=== PATIENT | male | born 1950 | race Caucasian/White ===

== ENCOUNTER 2017-02-17 12:29 | Emergency (ER) | payer BC, MEDICARE, OTHER ==
[2017-02-17 12:29] VITALS: BMI 21.5
--- NOTE | 2017-02-17 12:44 | C.PDOC ---
History Of Present Illness 66M c/o non-exertional midsternal chest pain since around 10 or 11am this morning. no exac or reliev fx. he also has pain in his right arm but he says he did a lot ot yardwork and heavy lifting yesterday and his arm pain is worse with movement of the arm. 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 Time Seen by Provider: 02/17/17 12:43 Chief Complaint (Nursing): Chest Pain Past Medical History Vital Signs: Last Vital Signs Temp 97.7 F 02/17/17 12:41 Pulse 79 02/17/17 12:41 Resp 20 02/17/17 12:41 BP 132/90 02/17/17 12:41 Pulse Ox 97 02/17/17 12:41 - Medical History PMH: Anemia, Gall Bladder Disease (cholecystectomy 1988), HTN, Hypercholesterolemia (Not taking meds anymore), Kidney Stones (passed without intervention), Malignancy (ESOPHAGUS) Surgical History: Appendectomy (childhood), Cholecystectomy (1988), Endoscopy - [facility] Procedures ESOPHAGOGASTRODUODENOSCOPY [EGD] W/CLOSED BIOPSY (02/07/13) OTH & OPEN REPAIR DIRECT INGUINAL HERNIA W GRAFT OR PROSTH (01/04/14) PACKED CELL TRANSFUSION (08/04/13) Family History: States: Other Other Family History: nc - Social History Hx Tobacco Use: No Hx Alcohol Use: No Hx Substance Use: No - Immunization History Hx Tetanus Toxoid Vaccination: No Hx Influenza Vaccination: Yes Hx Pneumococcal Vaccination: Yes Review Of Systems Except As Marked, All Systems Reviewed And Found Negative. Constitutional: Negative for: Fever, Chills Cardiovascular: Positive for: Chest Pain. Negative for: Palpitations, Edema, Light Headedness Respiratory: Negative for: Cough, Shortness of Breath, Hemoptysis Gastrointestinal: Negative for: Nausea, Vomiting, Abdominal Pain Musculoskeletal: Positive for: Arm Pain Neurological: Negative for: Weakness, Numbness Physical Exam - Physical Exam Appears: Well, Non-toxic, No Acute Distress Skin: Warm, Dry Head: Atraumatic, Normacephalic Eye(s): bilateral: PERRL Nose: No Epistaxis Oral Mucosa: Moist Neck: Normal ROM Chest: No Tenderness Cardiovascular: Rhythm Regular Respiratory: No Decreased Breath Sounds, No Accessory Muscle Use, No Rales, No Rhonchi, No Wheezing Gastrointestinal/Abdominal: Soft, No Tenderness Extremity: No Swelling Pulses: Left Radial: Normal, Right Radial: Normal Neurological/Psych: Oriented x3, Normal Motor, Normal Sensation, Other (no focal deficits) ED Course And Treatment - Laboratory Results Result Diagrams: 02/17/17 13:02 02/17/17 13:02 Medical Decision Making Medical Decision Making: ecg- nsr 93, nl axis, nl int, no acute ischemia cxr- nad disc results and overall risk level pt does not wish to be admitted but agrees to repeat trop 3 hours disc w Shandra- agree w plan for 3 hour trop and follow up tomorrow if neg Disposition - Disposition Referrals: Roseanne Devi MD [Staff Provider] - Disposition: HOME/ ROUTINE Disposition Time: 16:45 Condition: STABLE Additional Instructions: Please follow up with your doctor tomorrow. Return to the ER for any worsening symptoms or for any other concerns. Instructions: Chest Pain (ED) Forms: General Discharge Instructions - Clinical Impression Clinical Impression: Chest pain
[2017-02-17 12:45] VITALS: RESP 20; TEMP 97.7
[2017-02-17 13:08] LABS: BASO % 0.7 % (0.0-2.0); EOS # 0.2 K/uL (0.0-0.7); EOS % 2.3 % (0.0-4.0); HEMOGLOBIN 14.6 g/dL (12.0-18.0); LYMPH # 1.2 K/uL (1.0-4.3); LYMPH % 17.9 % (20.0-40.0); MEAN CELL VOLUME 88.8 fL (80.0-94.0); MEAN CORPUSCULAR HEMOGLOBIN 28.9 pg (27.0-31.0); MEAN CORPUSCULAR HGB CONC 32.6 g/dL (33.0-37.0); MEAN PLATELET VOLUME 7.5 fL (7.2-11.7); MONO # 0.7 K/uL (0.0-0.8); NEUT # 4.4 K/uL (1.8-7.0); NEUT % 68.1 % (50.0-75.0); NRBC % 0.1 % (0.0-2.0); RBC 5.03 Mil/uL (4.40-5.90); RED CELL DISTRIBUTION WIDTH 14.2 % (11.5-14.5); WHITE BLOOD COUNT 6.5 K/uL (4.8-10.8)
[2017-02-17 13:16] LABS: ALBUMIN 4.1 g/dL (3.5-5.0)
[2017-02-17 13:18] LABS: GFR AFRICAN-AMERICAN > 60; GFR NON-AFRICAN AMERICAN 55
[2017-02-17 13:19] LABS: ALB/GLOB RATIO 1.2 (1.0-2.1); ALT/SGPT 30 U/L (21-72); AST/SGOT 29 U/L (17-59); BLOOD UREA NITROGEN 21 mg/dL (9-20)
[2017-02-17 13:20] LABS: CALCIUM 9.2 mg/dl (8.6-10.4)
--- NOTE | 2017-02-17 13:36 | RAD ---
HISTORY: cp COMPARISON: Comparison chest 01/02/2014 comparison also made with CT scan chest abdomen pelvis dated 08/04/2013. FINDINGS: LUNGS: Previously noted mild bibasilar infiltrates/atelectasis and bilateral effusions resolved. The Residual bibasilar atelectasis/ scarring right greater than left. Persistent elevation right hemidiaphragm particularly along the lateral aspect of the hemidiaphragm. Additionally, there appears to be some minor linear scarring/fibrotic changes in the upper lobes as well. PLEURA: No significant pleural effusion identified, no pneumothorax apparent. CARDIOVASCULAR: Normal. . OSSEOUS STRUCTURES: No significant abnormalities. VISUALIZED UPPER ABDOMEN: Normal. OTHER FINDINGS: Previously noted esophagectomy and gastric pull-through changes less well seen on this exam compared to high-resolution CT chest. IMPRESSION: Previously noted bibasilar infiltrates/atelectasis and bilateral effusions on prior exam have resolved. Residual bibasilar atelectasis/ scarring right greater than left. Persistent elevation right hemidiaphragm particularly along the lateral aspect of the hemidiaphragm. Estrada
[2017-02-17 16:53] VITALS: BP 131/92; PULSE 76; O2SAT 98
--- NOTE | 2017-02-18 21:30 | CARD ---
APPROVED REPORT EKG Measurement Heart [id number] <Conclusion> Normal sinus rhythm Normal ECG
== END 2017-02-17 16:53 | disposition home or self-care (01) ==
LOC: C.ER 12:29
DX: R07.9 Chest pain, unspecified (principal)